=== PATIENT | female | born 1995 | race Caucasian/White ===

== ENCOUNTER 2018-07-25 22:36 | Emergency (ER) | payer SELFPAY ==
[2018-07-25 22:47] VITALS: O2SAT 100
[2018-07-25] MEDS ORDERED: Sodium Chloride 0.9% 1,000 ML IV ONE ×2 (23:00→23:50)
[2018-07-25 23:12] LABS: BASO # 0.1 K/uL (0.0-0.2); BASO % 0.7 % (0.0-2.0); EOS % 0.5 % (0.0-4.0); HEMOGLOBIN 14.2 g/dL (11.0-16.0); LYMPH # 4.1 K/uL (1.0-4.3); LYMPH % 50.6 % (20.0-40.0); MEAN CELL VOLUME 84.5 fL (81.0-99.0); MEAN CORPUSCULAR HEMOGLOBIN 29.7 pg (27.0-31.0); MEAN CORPUSCULAR HGB CONC 35.1 g/dL (33.0-37.0); MEAN PLATELET VOLUME 7.7 fL (7.2-11.7); MONO # 0.7 K/uL (0.0-0.8); MONO % 8.4 % (0.0-10.0); NEUT # 3.3 K/uL (1.8-7.0); NEUT % 39.8 % (50.0-75.0); RBC 4.78 Mil/uL (3.80-5.20); RED CELL DISTRIBUTION WIDTH 12.6 % (11.5-14.5); WHITE BLOOD COUNT 8.2 K/uL (4.8-10.8)
[2018-07-25 23:20] LABS: HCG,QUALITATIVE URINE NEGATIVE (NEGATIVE)
--- NOTE | 2018-07-25 23:20 | C.PDOC ---
History Of Present Illness 23 year old female presents to the ED c/o abdominal pain associated with nausea, vomiting, diarrhea for the past 7 days. Patient reports she saw a doctor on , who diagnosed her with "strep throat" and prescribed her Augmentin. Patient states her throat pain has improved. She is currently c/o feeling lightheaded and with nausea/vomiting. Patient denies any PMHx, fever/chills, cough, CP, SOB, headache, rashes, recent travel, sick contacts. Time Seen by Provider: 07/25/18 22:54 Chief Complaint (Nursing): Abdominal Pain History Per: Patient History/Exam Limitations: no limitations Onset/Duration Of Symptoms: Days (7) Current Symptoms Are (Timing): Better Severity: Moderate Location Of Pain/Discomfort: Diffuse Quality Of Discomfort: "Pain" Associated Symptoms: Nausea, Vomiting, Diarrhea. denies: Urinary Symptoms Alleviating Factors: None Recent travel outside of the [place]: No Additional History Per: Patient Abnormal Vaginal Bleeding: No Past Medical History Reviewed: Historical Data, Nursing Documentation, Vital Signs Vital Signs: Last Vital Signs Temp 97.9 F 07/25/18 22:42 Pulse 112 H 07/25/18 22:42 Resp 24 07/25/18 22:42 BP 120/82 07/25/18 22:42 Pulse Ox 100 07/25/18 22:42 - Medical History PMH: No Chronic Diseases Surgical History: No Surg Hx Family History: States: No Known Family Hx - Social History Hx Alcohol Use: No Hx Substance Use: No - Immunization History Hx Tetanus Toxoid Vaccination: No Hx Influenza Vaccination: No Hx Pneumococcal Vaccination: No Review Of Systems Constitutional: Positive for: Malaise. Negative for: Fever, Chills Eyes: Negative for: Vision Change ENT: Negative for: Nose Discharge, Nose Congestion, Throat Pain Respiratory: Negative for: Cough, Shortness of Breath Gastrointestinal: Positive for: Nausea, Vomiting, Abdominal Pain, Diarrhea Genitourinary: Negative for: Dysuria, Hematuria Skin: Negative for: Rash Neurological: Negative for: Weakness, Numbness, Headache, Dizziness Physical Exam - Physical Exam Appears: Well, Non-toxic, Other (mildly uncomfortable) Skin: Normal Color, Warm, Dry Eye(s): bilateral: Normal Inspection Oral Mucosa: Moist Neck: Supple Chest: Symmetrical Cardiovascular: Rhythm Regular (tachycardic) Respiratory: Normal Breath Sounds, No Rales, No Rhonchi, No Wheezing Gastrointestinal/Abdominal: Bowel Sounds, Soft, Tenderness (mild diffuse TTP), No Guarding, No Rebound, Other ((-) McBurney's, Park's) Back: No CVA Tenderness Extremity: Normal ROM, No Tenderness, No Swelling Neurological/Psych: Oriented x3, Normal Speech, Normal Cognition Gait: Steady ED Course And Treatment - Laboratory Results Result Diagrams: 07/25/18 23:00 07/25/18 23:00 O2 Sat by Pulse Oximetry: 100 (ON RA) Pulse Ox Interpretation: Normal Progress Note: Blood work, UA, Upreg ordered and reviewed. Patient given IV NS bolus, IV zofran, IV toradol. PO Kdur given for mild hypokalemia. Reevaluation Time: 00:40 Reassessment Condition: Improved (On reassessment, patient is resting comfortably and states she feels better. On exam, abdomen is soft and nontend er. Patient is comfortable being discharged home, Rxs for bentyl and zofran given. She wasinstructed to follow up with PMD/clinic in 1-2 days, and she understands she should return to ED if symptoms worsen.) Disposition Counseled Patient/Family Regarding: Studies Performed, Diagnosis, Need For Followup, Rx Given - Disposition Referrals: [facility] [Outside] Disposition: HOME/ ROUTINE Disposition Time: 00:40 Condition: STABLE Additional Instructions: FOLLOW UP WITH YOUR DOCTOR ICLINIC IN 1-2 DAYS USE MEDICATIONS NEEDED DRINK PLENTY OF CLEAR FLUIDS, AND ADVANCE DIET SLOWLY TOLERATED RETURN TO ER IF SYMPTOMS WORSEN Prescriptions: Dicyclomine [Bentyl] 20 mg PO Q6 PRN #12 tab PRN Reason: ABDOMINAL CRAMPING Ondansetron [Zofran Odt] 4 mg PO Q8 PRN #12 odt PRN Reason: Nausea/Vomiting Instructions: Diarrhea and Traveler's Diarrhea, Adult (DC), Nausea and Vomiting, Adult (DC) Forms: [employer] ([employer]) Print Language: DANISH - Clinical Impression Clinical Impression: Nausea, Vomiting, Diarrhea - Scribe Statement The provider has reviewed the documentation as recorded by the Scribe David Amaro All medical record entries made by the Scribe were at my direction and personally dictated by me. I have reviewed the chart and agree that the record accurately reflects my personal performance of the history, physical exam, medical decision making, and the department course for this patient. I have also personally directed, reviewed, and agree with the discharge instructions and disposition.
[2018-07-25 23:25] LABS: ALBUMIN 4.7 g/dL (3.5-5.0); ALT/SGPT 24 U/L (9-52); AST/SGOT 21 U/L (14-36); BLOOD UREA NITROGEN 6 mg/dL (7-17); CALCIUM 9.5 mg/dl (8.6-10.4); GFR NON-AFRICAN AMERICAN > 60; LIPASE 79 U/L (23-300)
[2018-07-25 23:27] LABS: SQUAMOUS EPITHIAL 10 /hpf (0-5); URINE BACTERIA RARE (<OCC); URINE BILIRUBIN NEGATIVE (NEGATIVE); URINE BLOOD 1+ (NEGATIVE); URINE CLARITY Hazy (Clear); URINE COLOR Yellow (YELLOW); URINE GLUCOSE (UA) NORMAL (Normal); URINE LEUKOCYTE ESTERASE 3+ Leu/uL (Negative); URINE PROTEIN NEGATIVE (NEGATIVE); URINE UROBILINOGEN NORMAL mg/dL (0.2-1.0)
[2018-07-25] MEDS ORDERED: Potassium Chloride 20 mEq ER Tab PO STA (23:47)
[2018-07-25] MEDS ORDERED: Potassium Chloride 10 mEq ER Tab PO ONE (23:52)
[2018-07-26 00:29] VITALS: BP 110/70; PULSE 86; RESP 20
[2018-07-26 00:31] VITALS: TEMP 97.6
== END 2018-07-26 00:44 | disposition home or self-care (01) ==
LOC: C.ER 22:36
DX: R11.2 Nausea with vomiting, unspecified (principal); R19.7 Diarrhea, unspecified
CPT/HCPCS: 80053; 81001; 82948; 83690; 84703; 85025; 96361; 96374; 96375; 99284; J1885; J2405; J7030